=== PATIENT | male | born 1945 | race Caucasian/White ===

== ENCOUNTER → 2017-05-01 | Outpatient (CLI) | payer OTHER | LOC: SBRMNEURO 00:34 | PROVIDERS: ATTEND Internal Medicine Sleep Medicine | DX: G47.61 Periodic limb movement disorder (principal); G47.36 Sleep related hypoventilation in conditions classified elsewhere ==

== ENCOUNTER → 2017-07-09 | Outpatient (CLI) | payer OTHER | LOC: BHCLAF 09:15 | PROVIDERS: ATTEND Internal Medicine Cardiovascular Disease | DX: R06.02 Shortness of breath (principal) | CPT/HCPCS: 93306-PO ==